=== PATIENT | male | born 2000 | race Two or more races ===

== ENCOUNTER 2021-12-23 12:13 | Emergency (ER) | payer MEDICAID, SELFPAY ==
[2021-12-23 13:06] VITALS: BP 142/89; PULSE 79; RESP 16; TEMP 37; O2SAT 98; BMI 41.5
--- NOTE | 2021-12-23 15:26 | US_ITS ---
WS: [id number] SCROTAL ULTRASOUND EXAMINATION CLINICAL INFORMATION: injury; hematuria COMPARISON: None. FINDINGS: TESTES Normal in size and echotexture, without focal lesion. Color Doppler: Normal color Doppler flow pattern. Right testes size: 4.8 cm x 3.0 cm x 2.5 cm. Left testes size: 4.3 cm x 2.9 cm x 2.4 cm. EPIDIDYMIDES Normal in size and echotexture, without focal lesion. Color Doppler: Normal color Doppler flow pattern. Right epididymis size: 0.9 cm x cm x cm. Left epididymitis size: 0.6 cm x cm x cm. HYDROCELE None. VARICOCELE None. OTHER FINDINGS None. US/US scrotum [id number] IMPRESSION: Normal scrotal ultrasound
--- NOTE | 2021-12-23 15:27 | W.ED.MALEGU ---
Documented by User: CHELO Quezada 12/24/21 07:20 HPI - Male Genitourinary General: Chief complaint: Urogenital-Male Stated complaint: bleeding from penis , cp Time Seen by Provider: 12/23/21 15:18 Source: patient Mode of arrival: ambulatory Limitations: no limitations History of Present Illness: Patient is a 21-year-old male who presents to ED today along with his significant other for complaints of hematuria that he first noticed this morning. Patient states yesterday evening he did sit on his sack by accident. He states he iced his scrotum/testicles last night they did seem to feel better this morning. He is denying redness, swelling, tenderness at the moment. He states he first urinated this morning after he woke up and noticed the urine initially looked clear however quickly turned bright red with small amounts of clots. He is not having any flank pain. No dysuria. No penile discharge otherwise. MD Complaint: genital injury Onset (ago): hour(s) Duration: intermittent Associated symptoms: Reports hematuria; Deny dysuria, nausea, urinary incontinence or vomiting Review of Systems GI: Denies: abdominal pain, nausea, vomiting or diarrhea : Reports: hematuria; Denies: flank pain, difficulty urinating, dysuria, urinary frequency, urinary urgency, urinary hesitancy, urinary dribbling, difficulty starting urination, change in urine stream, nocturia, oliguria, urinary incontinence, genital pain, genital lesions, penile discharge, testicular pain, testicular mass or scrotal swelling Musc: Denies: back pain Skin/Breast: Denies: rash Physical Exam Const: COMMON NORMALS: no acute distress, patient oriented x3, no limitations and alert GENERAL APPEARANCE: cooperative NUTRITIONAL APPEARANCE: obese ORIENTATION/CONSCIOUSNESS: Yes awake, Yes oriented to person, Yes oriented to place and Yes oriented to time : COMMON NORMALS: Yes no CVA tenderness BLADDER/KIDNEY EXAM: Yes no CVA tenderness OTHER: pt deferred Back/Pelvis: COMMON NORMALS: no CVA tenderness Neuro: COMMON NORMALS: patient oriented x3 SENSORIUM/ORIENTATION: Yes alert, Yes oriented to person, Yes oriented to place and Yes oriented to time Course Vital Signs: Vital signs: Vital Signs Temperature 98.6 F 12/23/21 13:06 Pulse Rate 99 12/23/21 18:10 Respiratory Rate 18 12/23/21 18:10 Blood Pressure 134/71 12/23/21 18:10 Pulse Oximetry 98 12/23/21 18:10 MDM - Male Lab Data : 12/23/21 15:30 12/23/21 15:30 Radiology Impressions Scrotum Ultrasound 12/23/21 15:26 IMPRESSION: Normal scrotal ultrasound Abdomen/Pelvis CT 12/23/21 17:06 IMPRESSION: No acute abnormality is seen in the abdomen or pelvis. No renal stone is visualized. Laboratory Results WBC 16.1 10^3/uL (4.0-10.0) H 12/23/21 15:30 RBC 5.86 10^6/uL (4.1-5.3) H 12/23/21 15:30 Hgb 16.2 g/dL (11.7-16.6) 12/23/21 15:30 Hct 48.8 % (42.0-52.0) 12/23/21 15:30 MCV 83.3 fl (80-94) 12/23/21 15:30 MCH 27.6 pg (28.0-34.0) L 12/23/21 15:30 MCHC 33.2 g/dL (30.0-36.0) 12/23/21 15:30 RDW 13.0 % (12.1-15.1) 12/23/21 15:30 Plt Count 419 10^3/cmm (130-400) H 12/23/21 15:30 MPV 10.2 fL (7.4-10.4) 12/23/21 15:30 Neut % (Auto) 74.0 % 12/23/21 15:30 Lymph % (Auto) 18.2 % 12/23/21 15:30 Petroleum % (Auto) 5.4 % 12/23/21 15:30 Eos % (Auto) 1.7 % 12/23/21 15:30 Baso % (Auto) 0.4 % 12/23/21 15:30 Neut # (Auto) 11.96 10^3/uL (1.8-7.7) H 12/23/21 15:30 Lymph # (Auto) 2.9 10^3/uL (0.8-4.8) 12/23/21 15:30 Petroleum # (Auto) 0.9 10^3/uL (0.2-0.9) 12/23/21 15:30 Eos # (Auto) 0.3 10^3/uL (0.0-0.8) 12/23/21 15:30 Baso # (Auto) 0.1 10^3/uL (0.0-0.1) 12/23/21 15:30 Nucleated RBC % (auto) 0 % 12/23/21 15: Nucleated RBCs # 0.0 /100WBC 12/23/21 15:30 Sodium 137 mmol/L (136-145) 12/23/21 15:30 Potassium 3.9 mmol/L (3.5-5.1) 12/23/21 15:30 Chloride 101 mmol/L (98-107) 12/23/21 15: Carbon Dioxide 26 mmol/L (22-29) 12/23/21 15:30 Anion Gap 13.9 (5-19) 12/23/21 15:30 BUN 10 mg/dL (6-20) 12/23/21 15:30 Creatinine 0.7 mg/dL (0.7-1.2) 12/23/21 15:30 GFR Calculation 141.0 mL/min (90-130) H 12/23/21 15:30 Glucose 86 mg/dL (65-115) 12/23/21 15:30 Calculated Osmolality 282 mOsm/kg (285-295) L 12/23/21 15:30 Calcium 9.5 mg/dL (8.5-10.5) 12/23/21 15:30 Total Bilirubin 0.5 mg/dL (0.15-1.2) 12/23/21 15:30 AST 23 U/L (0-40) 12/23/21 15:30 ALT 47 U/L (0-41) H 12/23/21 15:30 Alkaline Phosphatase 93 IU/L (40-130) 12/23/21 15:30 Total Protein 7.6 g/dL (6.6-8.7) 12/23/21 15:30 Albumin 4.5 g/dL (3.5-5.2) 12/23/21 15:30 Globulin 3.1 g/dL (1.3-4.6) 12/23/21 15:30 Urine Color Red (Yellow) 12/23/21 15:30 Urine Appearance Bloody (CLEAR) A 12/23/21 15:30 Urine pH 8 (5-7) H 12/23/21 15:30 Ur Specific [place] 1.010 (1.005-1.030) 12/23/21 15:30 Urine Protein 3+ (Negative) H 12/23/21 15:30 Urine Glucose (UA) Norm (Normal) 12/23/21 15:30 Urine Ketones Negative (Negative) 12/23/21 15:30 Urine Blood 3+ (Negative) H 12/23/21 15:30 Urine Nitrate Negative (Negative) 12/23/21 15:30 Urine Bilirubin Neg (Negative) 12/23/21 15:30 Urine Urobilinogen Norm mg/dL (Negative) 12/23/21 15:30 Ur Leukocyte Esterase 1+ (Negative) H 12/23/21 15:30 Urine RBC Too numerous to cnt /hpf (0-2) H 12/23/21 15:30 Urine WBC 10-15 /hpf (0-5) H 12/23/21 15:30 Ur Squamous Epith Cells None /hpf (0-5) 12/23/21 15:30 Amorphous Sediment Not Reportable 12/23/21 15:30 Urine Bacteria 1+ /hpf (NONE) H 12/23/21 15:30 Discharge Plan Discharge Patient Disposition: Home Clinical Impression: Hematuria of unknown etiology Condition: Stable Prescriptions: New cephalexin 500 mg capsule 500 mg PO TID 7 Days Qty: 21 0RF hydrocodone-acetaminophen 5-325 mg tablet 1 tab PO TID PRN (Reason: pain (scale score 7-10)) Qty: 6 0RF Discharge Orders: Discharge ED (Routine); Ordered 12/23/21 Ordered By: Pedro Luis Young Discharge Diet: Usual diet Discharge Activity: Increase activity as tolerated Patient Instructions: Hematuria (ED), Opioid Safety Activity Restrictions/Additional Instructions: Take medications as directed. Drink plenty of water. Case management will contact you regarding appointment to follow-up with urologist. You will need further evaluation with the urologist due to the hematuria. Return to ER for high fever, worsening pain, or new concerns. Sign Out Sign Out Data: Patient Sign Out occurred on 12/23/21 at 16:22. Patient's care was discussed, and care was transferred from to Pedro Luis Young. 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 Ultrasound was unremarkable. White blood cell count is bumped up a little at 16 along with red blood cell count at 5.86. Suspect renal calculi we will add a CT of the abdomen pelvis without contrast for renal evaluation. Vital Signs: Vital signs: Vital Signs Temperature 98.6 F 12/23/21 13:06 Pulse Rate 99 12/23/21 18:10 Respiratory Rate 18 12/23/21 18:10 Blood Pressure 134/71 12/23/21 18:10 Pulse Oximetry 98 12/23/21 18:10 MDM - Male Medical Decision Making 21-year-old male patient comes in today with blood in his urine. On exam patient had no CVA tenderness. Patient reported right testicular pain that has waxed and waned. Patient appears nontoxic. Vital signs are normal except for some elevation in blood pressure. Differential diagnosis includes cystitis, hematuria of unknown etiology, UTI, renal calculi. Ultrasound of the scrotum was negative for abnormality, CBC showed an increase in white blood cell counts of 16, CMP was unremarkable, urinalysis had too numerous to count red blood cells and some mild elevation in white blood cells. CT of the abdomen pelvis showed no renal calculi at this time. Patient may have an infection causing the hematuria we went ahead and treated with Rocephin and with cephalexin to follow. Patient was treated with his pain with ketorolac and morphine x1. We gave patient 1500 mL of saline to flush the kidneys and 1 g of Rocephin in the ER for treatment of probable UTI. Case management was requested set up follow-up appointment with urology due to the large amount of hematuria. Patient reported understanding of care plan need for follow-up or return to the ER for worsening symptoms. Lab Data : 12/23/21 15:30 12/23/21 15:30 Radiology Impressions Scrotum Ultrasound 12/23/21 15:26 IMPRESSION: Normal scrotal ultrasound Abdomen/Pelvis CT 12/23/21 17:06 IMPRESSION: No acute abnormality is seen in the abdomen or pelvis. No renal stone is visualized. Laboratory Results WBC 16.1 10^3/uL (4.0-10.0) H 12/23/21 15:30 RBC 5.86 10^6/uL (4.1-5.3) H 12/23/21 15:30 Hgb 16.2 g/dL (11.7-16.6) 12/23/21 15:30 Hct 48.8 % (42.0-52.0) 12/23/21 15:30 MCV 83.3 fl (80-94) 12/23/21 15:30 MCH 27.6 pg (28.0-34.0) L 12/23/21 15:30 MCHC 33.2 g/dL (30.0-36.0) 12/23/21 15:30 RDW 13.0 % (12.1-15.1) 12/23/21 15: Plt Count 419 10^3/cmm (130-400) H 12/23/21 15:30 MPV 10.2 fL (7.4-10.4) 12/23/21 15:30 Neut % (Auto) 74.0 % 12/23/21 15:30 Lymph % (Auto) 18.2 % 12/23/21 15:30 Petroleum % (Auto) 5.4 % 12/23/21 15:30 Eos % (Auto) 1.7 % 12/23/21 15:30 Baso % (Auto) 0.4 % 12/23/21 15:30 Neut # (Auto) 11.96 10^3/uL (1.8-7.7) H 12/23/21 15:30 Lymph # (Auto) 2.9 10^3/uL (0.8-4.8) 12/23/21 15:30 Petroleum # (Auto) 0.9 10^3/uL (0.2-0.9) 12/23/21 15:30 Eos # (Auto) 0.3 10^3/uL (0.0-0.8) 12/23/21 15:30 Baso # (Auto) 0.1 10^3/uL (0.0-0.1) 12/23/21 15:30 Nucleated RBC % (auto) 0 % 12/23/21 15: Nucleated RBCs # 0.0 /100WBC 12/23/21 15:30 Sodium 137 mmol/L (136-145) 12/23/21 15:30 Potassium 3.9 mmol/L (3.5-5.1) 12/23/21 15:30 Chloride 101 mmol/L (98-107) 12/23/21 15: Carbon Dioxide 26 mmol/L (22-29) 12/23/21 15:30 Anion Gap 13.9 (5-19) 12/23/21 15:30 BUN 10 mg/dL (6-20) 12/23/21 15:30 Creatinine 0.7 mg/dL (0.7-1.2) 12/23/21 15:30 GFR Calculation 141.0 mL/min (90-130) H 12/23/21 15:30 Glucose 86 mg/dL (65-115) 12/23/21 15:30 Calculated Osmolality 282 mOsm/kg (285-295) L 12/23/21 15:30 Calcium 9.5 mg/dL (8.5-10.5) 12/23/21 15:30 Total Bilirubin 0.5 mg/dL (0.15-1.2) 12/23/21 15:30 AST 23 U/L (0-40) 12/23/21 15:30 ALT 47 U/L (0-41) H 12/23/21 15:30 Alkaline Phosphatase 93 IU/L (40-130) 12/23/21 15:30 Total Protein 7.6 g/dL (6.6-8.7) 12/23/21 15:30 Albumin 4.5 g/dL (3.5-5.2) 12/23/21 15:30 Globulin 3.1 g/dL (1.3-4.6) 12/23/21 15:30 Urine Color Red (Yellow) 12/23/21 15:30 Urine Appearance Bloody (CLEAR) A 12/23/21 15:30 Urine pH 8 (5-7) H 12/23/21 15:30 Ur Specific [place] 1.010 (1.005-1.030) 12/23/21 15:30 Urine Protein 3+ (Negative) H 12/23/21 15:30 Urine Glucose (UA) Norm (Normal) 12/23/21 15:30 Urine Ketones Negative (Negative) 12/23/21 15:30 Urine Blood 3+ (Negative) H 12/23/21 15:30 Urine Nitrate Negative (Negative) 12/23/21 15:30 Urine Bilirubin Neg (Negative) 12/23/21 15:30 Urine Urobilinogen Norm mg/dL (Negative) 12/23/21 15:30 Ur Leukocyte Esterase 1+ (Negative) H 12/23/21 15:30 Urine RBC Too numerous to cnt /hpf (0-2) H 12/23/21 15:30 Urine WBC 10-15 /hpf (0-5) H 12/23/21 15:30 Ur Squamous Epith Cells None /hpf (0-5) 12/23/21 15:30 Amorphous Sediment Not Reportable 12/23/21 15:30 Urine Bacteria 1+ /hpf (NONE) H 12/23/21 15:30 Discharge Plan Discharge Patient Disposition: Home Clinical Impression: Hematuria of unknown etiology Condition: Stable Prescriptions: New cephalexin 500 mg capsule 500 mg PO TID 7 Days Qty: 21 0RF hydrocodone-acetaminophen 5-325 mg tablet 1 tab PO TID PRN (Reason: pain (scale score 7-10)) Qty: 6 0RF Discharge Orders: Discharge ED (Routine); Ordered 12/23/21 Ordered By: Pedro Luis Young Discharge Diet: Usual diet Discharge Activity: Increase activity as tolerated Patient Instructions: Hematuria (ED), Opioid Safety Activity Restrictions/Additional Instructions: Take medications as directed. Drink plenty of water. Case management will contact you regarding appointment to follow-up with urologist. You will need further evaluation with the urologist due to the hematuria. Return to ER for high fever, worsening pain, or new concerns. Sign Out Sign Out Data: Patient Sign Out occurred on 12/23/21 at 16:22. Patient's care was discussed, and care was transferred from to Pedro Luis Young. Coding Level of Care Code ED Deep Submergence Vehicle Crewmember for Chg Fwd Exam Expanded Problem Focused
[2021-12-23 15:50] LABS: Basophils # 0.1 10^3/uL (0.0-0.1); Basophils % 0.4 %; Eosinophils # 0.3 10^3/uL (0.0-0.8); Eosinophils % 1.7 %; Hematocrit 48.8 % (42.0-52.0); Hemoglobin 16.2 g/dL (11.7-16.6); Lymphocytes # 2.9 10^3/uL (0.8-4.8); Lymphocytes % 18.2 %; Mean Corpuscular HGB Conc 33.2 g/dL (30.0-36.0); Mean Corpuscular Hemoglobin 27.6 pg (28.0-34.0); Mean Corpuscular Volume 83.3 fl (80-94); Mean Platelet Volume 10.2 fL (7.4-10.4); Monocytes # 0.9 10^3/uL (0.2-0.9); Monocytes % 5.4 %; Neutrophils # 11.96 10^3/uL (1.8-7.7); Nucleated Red Blood Cells % 0 %; Platelet Count 419 10^3/cmm (130-400); Red Blood Count 5.86 10^6/uL (4.1-5.3); White Blood Count 16.1 10^3/uL (4.0-10.0)
[2021-12-23 16:28] LABS: Alanine Aminotransferase 47 U/L (0-41); Albumin Level 4.5 g/dL (3.5-5.2); Alkaline Phosphatase 93 IU/L (40-130); Anion Gap 13.9 (5-19); Aspartate Amino Transferase 23 U/L (0-40); Blood Urea Nitrogen 10 mg/dL (6-20); Calcium 9.5 mg/dL (8.5-10.5); Carbon Dioxide 26 mmol/L (22-29); Chloride 101 mmol/L (98-107); Globulin 3.1 g/dL (1.3-4.6); Glucose 86 mg/dL (65-115); Osmolality Calculated 282 mOsm/kg (285-295); Potassium 3.9 mmol/L (3.5-5.1); Sodium 137 mmol/L (136-145); Total Bilirubin 0.5 mg/dL (0.15-1.2); Total Protein 7.6 g/dL (6.6-8.7)
[2021-12-23 17:01] LABS: Urine Appearance Bloody (CLEAR); Urine Color Red (Yellow); pH Urine 8 (5-7)
[2021-12-23 17:02] LABS: Add Urine Microscopic? YES; Bilirubin Urine Neg (Negative); Blood Urine 3+ (Negative); Glucose Urine UA Norm (Normal); Ketones Urine Negative (Negative); Leukocyte Esterase Urine 1+ (Negative); Nitrate Urine Negative (Negative); Protein Urine 3+ (Negative); Urobilinogen Urine Norm (Negative)
[2021-12-23 17:03] LABS: Add Urine Culture? Yes; Bacteria Urine 1+ /hpf; RBC Urine TOO NUMEROUS TO CNT /hpf (0-2)
--- NOTE | 2021-12-23 17:06 | CTR_ITS ---
PROCEDURE INFORMATION: Exam: CT Abdomen And Pelvis Without Contrast Exam date and time: 12/23/2021 6:18 PM Age: 21 years old Clinical indication: Pain; Other: Scrotal, penile; Additional info: Hematuria TECHNIQUE: Imaging protocol: Computed tomography of the abdomen and pelvis without contrast. Radiation optimization: All CT scans at this facility use at least one of these dose optimization techniques: automated exposure control; mA and/or kV adjustment per patient size (includes targeted exams where dose is matched to clinical indication); or iterative reconstruction. COMPARISON: US scrotum [id number] 12/23/2021 4:00 PM RADIATION DOSE METRICS: Total DLP (mGy-cm): 1489.43 FINDINGS: Liver: Normal. No mass. Gallbladder and bile ducts: Normal. No calcified stones. No ductal dilation. Pancreas: Normal. No ductal dilation. Spleen: Normal. No splenomegaly. Adrenal glands: Normal. No mass. Kidneys and ureters: Normal. No renal stone or hydronephrosis. Stomach and bowel: Unremarkable. No obstruction. No mucosal thickening. Appendix: No evidence of appendicitis. Intraperitoneal space: Unremarkable. No free air. No significant fluid collection. Vasculature: Unremarkable. No abdominal aortic aneurysm. Lymph nodes: Unremarkable. No enlarged lymph nodes. Urinary bladder: Unremarkable as visualized. Reproductive: Unremarkable as visualized. Bones/joints: Unremarkable. No acute fracture. Soft tissues: Unremarkable. CT/CT kidney stone [id number] IMPRESSION: No acute abnormality is seen in the abdomen or pelvis. No renal stone is visualized.
[2021-12-23] MEDS: sodium chloride 0.9% 500 ML 999 ML IV (17:28)
[2021-12-23] MEDS: ondansetron 2 mg/ML SDV 2 mL 4 MG IVP (17:28)
[2021-12-23] MEDS: ketorolac 30 mg/mL INJ 15 MG IVP (17:28)
[2021-12-23 17:29] VITALS: RESP 14; O2SAT 98
[2021-12-23] MEDS: morphine 4 mg/mL SDV 1 mL IVP (17:29)
[2021-12-23 18:10] VITALS: BP 134/71; PULSE 99; RESP 18; O2SAT 98
[2021-12-23] MEDS: cefTRIAXone 1,000 MG in sodium chloride 0.9% (plus) 50 ML 100 MG IV (19:22)
[2021-12-23] MEDS: sodium chloride 0.9% 1,000 ML 999 ML IV (19:22)
--- NOTE | 2021-12-24 07:18 | DCPLANNER ---
Addendum entered by Viry Ibrahim 01/09/22 12:29: Patient had a follow up appointment scheduled and it was cancelled. Original Note: dairy frozen manager had message to schedule a follow up appointment for patient with urology. dairy frozen manager sent patients information to the front office staff at urology. Patients information will be printed and reviewed. Clinic will call patient with appointment information.
== END 2021-12-23 20:07 | disposition home or self-care (01) ==
PROVIDERS: Physician Assistant; Emergency Provider Nurse Practitioner Family
DX: R31.9 Hematuria, unspecified (principal)
CPT/HCPCS: 74176; 76870; 80053; 81001; 85025; 87077; 87086; 87186; 96365; 96375; 99285; J0696; J1885; J2270; J2405; J7030; J7040

== ENCOUNTER 2022-07-26 10:02 | Emergency (ER) | payer MEDICAID, SELFPAY ==
[2022-07-26 11:00] VITALS: BP 161/104; PULSE 77; TEMP 36.7; O2SAT 99; BMI 35.4
--- NOTE | 2022-07-26 11:59 | W.ED.NAVMDI ---
HPI - Nausea/Vomiting/Diarrhea General: Chief complaint: Nausea/Vomiting/Diarrhea Stated complaint: N/V, Hot flashes, no fever Time Seen by Provider: 07/26/22 11:45 History of Present Illness: 21-year-old male reports that he has been having nausea vomiting diarrhea and stomach cramping since he did a TikTok challenge . He reports that he deep-fried a combination of foods inside of a crispy crust. He reports one of the foods that was inside of it was mayonnaise. He says he ate a whole lot of it. He read that deep frying this mayonnaise can cause it to go bad. He says he also ate such a large volume that it could have just been overload. He has not had any bloody stools, fevers, cough, shortness of breath. He has no chronic abdominal problems. He does report that he has diarrhea medicine and nausea medicine at home. He has not traveled anywhere. No sick contacts. The abdominal pain is crampy and it comes and goes Associated nausea: Yes Associated symtoms: Reports nausea; Denies altered mental status, change in vision, chest pain, dysuria, headache(s) or syncope Review of Systems General: Reports: 10 or more systems reviewed and unremarkable except in HPI and below Const: Denies: fever(s), chills or body aches Eyes: Denies: change in vision ENMT: Denies: throat pain Card: Denies: chest pain, edema or syncope Resp: Denies: dyspnea or productive cough GI: Reports: abdominal pain, nausea, vomiting, diarrhea and GI cramping; Denies: hematemesis or coffee ground emesis : Denies: flank pain, dysuria or urinary frequency Musc: Denies: neck pain, back pain, extremity pain or extremity swelling Skin/Breast: Denies: rash or erythema Neuro: Denies: headache(s), numbness in extremities, weakness in extremities, lack of coordination or difficulty walking Physical Exam Const: COMMON NORMALS: no limitations, alert and well nourished EXAM LIMITATIONS: no altered mental status HENMT: COMMON NORMALS: normocephalic, atraumatic and external ears normal HEAD & SCALP: normocephalic and atraumatic EXTERNAL EAR: Yes external ears normal MOUTH: no muffled voice Eye: COMMON NORMALS: EOMs intact bilaterally, conjunctivae normal and no scleral icterus CONJUNCTIVA: Yes conjunctivae normal Neck/C-Spine: COMMON NORMALS: no JVD GENERAL: Yes normal visual inspection and Yes trachea midline Resp: COMMON NORMALS: normal respiratory effort, No use of accessory muscles and clear to auscultation bilaterally AUSCULTATION: clear to auscultation bilaterally Cardio: COMMON NORMALS: no JVD, regular rate and regular rhythm RATE: regular rate RHYTHM: regular rhythm GI: COMMON NORMALS: Soft to palpation and non-tender AUSCULTATION: Yes Hyperactive bowel sounds present and No High-pitched bowel sounds present PALPATION: Yes Soft to palpation, No Tenderness to palpation present (GI), No Guarding due to palpation present (GI) and No Rigid due to palpation Extremity: COMMON NORMALS: normal to inspection Neuro: COMMON NORMALS: moves all extremities, no focal motor deficits and no sensory deficits noted SENSORIUM/ORIENTATION: Yes alert SPEECH: speech normal Psych: COMMON NORMALS: mental status grossly normal, Normal thought process present, cooperative, normal affect and speech normal SPEECH: Yes normal speech THOUGHT PROCESS: Normal thought process present Skin: COMMON NORMALS: no rashes or lesions noted, turgor normal and no jaundice GENERAL SKIN EXAM: no rashes or lesions noted and turgor normal Course Vital Signs: Vital signs: Vital Signs Temperature 98.1 F 07/26/22 11:00 Pulse Rate 82 07/26/22 12:17 Respiratory Rate 18 07/26/22 12:17 Blood Pressure 165/100 07/26/22 12:17 Pulse Oximetry 97 07/26/22 12:17 Oxygen Delivery Me thod 07/26/22 11:00 MDM - Nausea/Vomiting/Diarrhea Medical Decision Making Patient presents with nausea vomiting diarrhea and intermittent stomach cramping. His abdominal exam is benign with the exception of hyperactive bowel sounds. We discussed potential etiologies including both infectious, inflammatory and functional gastroenteritis simply due to the foods that he consumed. The patient was offered to have IV, labs, medications but states that if it is just something that will likely pass within a day or so, he would rather just go home and take his diarrhea medicine and nausea medicine that he has available there. I do think this is reasonable. His vitals are normal with the exception of elevated blood pressure Discharge Plan Discharge Patient Disposition: Home Clinical Impression: Gastroenteritis Condition: Stable Prescriptions: No Action hydrocodone-acetaminophen 5-325 mg tablet 1 tab PO TID PRN (Reason: pain (scale score 7-10)) Qty: 6 0RF Discharge Orders: Discharge ED (Routine); Ordered 07/26/22 Ordered By: Jm Ortiz Referrals: Sondra Ibrahim [Primary Care Provider] - Discharge Diet: Advance as tolerated Discharge Activity: Resume usual activity Patient Instructions: Gastroenteritis (ED), Abdominal Pain (ED) Activity Restrictions/Additional Instructions: Slowly advance diet. Return to ER for focal abdominal pain, fever, bloody stools, dehydration, or worsening symptoms. 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
--- NOTE | 2022-07-26 12:07 | PC.NURSE ---
pt reports vomiting and diarrhea after attempting a [employer] challenge where you irwin a cheeseburger with corunna. pt reports symptoms began same day. reports low grade fevers. denies other symptoms. pt reports he decided he can treat his symptoms at home and is ready to be discharged. pt speech clear, lung sounds clear bilat, bowel sounds present x4.
[2022-07-26 12:17] VITALS: BP 165/100; PULSE 82; RESP 18; O2SAT 97
== END 2022-07-26 12:19 | disposition home or self-care (01) ==
PROVIDERS: Emergency Provider Emergency Medicine; PCP Nurse Practitioner Family
DX: K52.9 Noninfective gastroenteritis and colitis, unspecified (principal)
CPT/HCPCS: 99282

== ENCOUNTER 2023-11-16 21:36 | Emergency (ER) | payer SELFPAY ==
[2023-11-16 21:46] VITALS: BP 169/83; PULSE 76; RESP 16; TEMP 37.1; O2SAT 98
--- NOTE | 2023-11-16 23:02 | XRR_ITS ---
PROCEDURE INFORMATION: Exam: XR Right Hip Exam date and time: 11/16/2023 11:11 PM Age: 22 years old Clinical indication: Injury or trauma; Fall; Other: Pain; Additional info: Fall, pain, non weightbearing TECHNIQUE: Imaging protocol: Radiologic exam of the right hip. Views: 1 view hip with pelvis when performed. COMPARISON: CT kidney stone [id number] 12/23/2021 6:18 PM FINDINGS: Bones/joints: Unremarkable. No acute fracture. Soft tissues: Unremarkable. XR/XR hip RT 2-3V wo/w pel* [id number] IMPRESSION: No acute findings.
--- NOTE | 2023-11-16 23:02 | XRR_ITS ---
PROCEDURE INFORMATION: Exam: XR Right Knee Exam date and time: 11/16/2023 11:18 PM Age: 22 years old Clinical indication: Injury or trauma; Fall; Other: Pain; Additional info: Fall, pain TECHNIQUE: Imaging protocol: Radiologic exam of the right knee. Views: 3 views. COMPARISON: No relevant prior studies available. FINDINGS: Bones/joints: Normal. Soft tissues: Normal. XR/XR knee RT 3V* [id number] IMPRESSION: No acute findings.
--- NOTE | 2023-11-16 23:02 | XRR_ITS ---
PROCEDURE INFORMATION: Exam: XR Right Tibia and Fibula Exam date and time: 11/16/2023 11:21 PM Age: 22 years old Clinical indication: Injury or trauma; Fall; Other: Pain; Additional info: Fall, mid anne pain TECHNIQUE: Imaging protocol: Radiologic exam of the right tibia and fibula. Views: 2 views. COMPARISON: CR XR knee RT 3V* [id number] 11/16/2023 11:18 PM FINDINGS: Bones/joints: Normal. Soft tissues: Normal. XR/XR tibia fibula RT 2V [id number] IMPRESSION: No acute findings.
--- NOTE | 2023-11-16 23:02 | XRR_ITS ---
PROCEDURE INFORMATION: Exam: XR Right Ankle Exam date and time: 11/16/2023 11:23 PM Age: 22 years old Clinical indication: Injury or trauma; Fall; Other: Pain; Additional info: Fall, swelling, pain TECHNIQUE: Imaging protocol: Radiologic exam of the right ankle. Views: 3 or more views. COMPARISON: CR (LOW EXM, ) 11/16/2023 11:21 PM FINDINGS: Bones/joints: Os trigonum, a normal variant. Soft tissues: Normal. XR/XR ankle RT min 3V* [id number] IMPRESSION: No acute findings. Consider further evaluation with a CT scan if concern fracture remains.
--- NOTE | 2023-11-16 23:02 | XRR_ITS ---
PROCEDURE INFORMATION: Exam: XR Right Foot Exam date and time: 11/16/2023 11:23 PM Age: 22 years old Clinical indication: Injury or trauma; Fall; Other: Pain; Additional info: Fall, swelling, pain TECHNIQUE: Imaging protocol: Radiologic exam of the right foot. Views: 3 or more views. COMPARISON: CR XR ankle RT min 3V* [id number] 11/16/2023 11:23 PM FINDINGS: Bones/joints: Normal. Soft tissues: Normal. XR/XR foot RT min 3V* [id number] IMPRESSION: No acute findings. Consider further evaluation with a CT scan if concern for fracture remains.
[2023-11-16] MEDS: HYDROcodone-acetaminophen 7.5-325 mg Tablet 1 TAB PO (23:12)
--- NOTE | 2023-11-16 23:15 | W.ED.EXTPRO ---
HPI - Extremity Problem General: Chief complaint: Extremity Injury, Lower Stated complaint: fall, right leg and foot swollen Time Seen by Provider: 11/16/23 22:31 Source: patient Mode of arrival: wheelchair Limitations: no limitations History of Present Illness: Patient presents emergency department today accompanied by significant other for evaluation treatment of right lower extremity pain after a fall. Patient reports that he was coming down some hardwood steps when his shoe caught, causing him to fall down. Patient states he went down about 7 or 8 steps. He reports impacting the back of his head on the floor but did not knock himself out. Since falling, he has had swelling of his right foot, right ankle and pain of the foot, ankle, mid anne, right knee with radiation up towards his hip. He has been nonweightbearing. He has not vomited but does have some mild headache. No dizziness. No history of any surgery to the right lower extremity in the past. Review of Systems General: Reports: 10 or more systems reviewed and unremarkable except in HPI and below Physical Exam Const: COMMON NORMALS: no acute distress, patient oriented x3 and alert HENMT: COMMON NORMALS: normocephalic, atraumatic and hearing grossly normal bilaterally HEAD & SCALP: normocephalic and atraumatic OTHER: No signs of any hematomas, abrasions, or contusions in the hair of the posterior scalp. Eye: COMMON NORMALS: Equal, round and reactive pupils present, EOMs intact bilaterally and conjunctivae normal CONJUNCTIVA: Yes conjunctivae normal PUPIL: Yes Equal, round and reactive pupils present Neck/C-Spine: COMMON NORMALS: full ROM and no JVD Lymph: LYMPHATIC: no lymphadenopathy noted Resp: COMMON NORMALS: normal respiratory effort, No retractions and No use of accessory muscles Cardio: COMMON NORMALS: no JVD and regular rate RATE: regular rate Extremity: NARRATIVE EXTREMITY EXAM: Patient is nonweightbearing to the right lower extremity. He does have obvious swelling of the dorsum of his right foot as well as the right lateral malleolus. Patient however almost jumps out of the bed on palpation of his mid tibia. He is also expressing pain with palpation in the right popliteal region. There was a moment where I thought there was some laxity appreciated on medial deviation of the patella on the right knee as well. Nontender to the lateral right hip. Patient does have a little bit of flexion and extension capabilities proven on examination of the hip. Neuro: COMMON NORMALS: patient oriented x3 SENSORIUM/ORIENTATION: Yes alert Psych: COMMON NORMALS: mental status grossly normal, Normal thought process present, cooperative and normal affect THOUGHT PROCESS: Normal thought process present Skin: COMMON NORMALS: no rashes or lesions noted and turgor normal GENERAL SKIN EXAM: no rashes or lesions noted and turgor normal Course Vital Signs: Vital signs: Vital Signs Temperature 98.8 F 11/16/23 21:46 Pulse Rate 60 11/17/23 01:04 Respiratory Rate 15 11/17/23 01:04 Blood Pressure 169/83 11/16/23 21:46 Pulse Oximetry 98 11/17/23 01:04 Oxygen Delivery Me thod Room Air 11/16/23 23:51 MDM - Extremity (Nontraumatic) Medical Decision Making Patient presents emergency department today for evaluation and treatment of right lower extremity injury after a fall on the stairs. Patient did have findings of foot and ankle swelling but, was profusely tender at the tibia and around the knee. While he was neurovascularly intact, we did still obtain x-rays to look for any signs of acute bony abnormality. X-rays are all negative for any signs of acute bony abnormality including x-rays of the hip, knee, tib-fib, ankle, and foot. Patient was treated acutely for pain here in the emergency department. Patient will be given ankle stabilization and crutches to remain nonweightbearing. Prescriptions for pickup at the pharmacy in the morning to be continued through the the next several days was also given. Recommendations for elevation, application of ice to the joints for 15 to 20 minutes, every couple of hours also recommended. Patient is to have follow-up with a primary care doctor in approximately 1 week for reevaluation. That way, patient is still having issues with weightbearing or range of motion he can be reevaluated and discussed repeat films at that time. Patient family verbalized understanding and agreement to treatment plan. Differential Diagnosis Likely lower extremity edema; Unlikely herpes zoster, gout, cellulitis, superficial thrombophlebitis or deep vein thrombosis of lower extremity Lab Data Radiology Impressions Ankle X-Ray 11/16/23 23:02 IMPRESSION: No acute findings. Consider further evaluation with a CT scan if concern fracture remains. Foot X-Ray 11/16/23 23:02 IMPRESSION: No acute findings. Consider further evaluation with a CT scan if concern for fracture remains. Hip/Pelvis X-Ray 11/16/23 23:02 IMPRESSION: No acute findings. Knee X-Ray 11/16/23 23:02 IMPRESSION: No acute findings. Tibia/Fibula X-Ray 11/16/23 23:02 IMPRESSION: No acute findings. All radiology interpretation(s) finalized by discharge Discharge Plan Discharge Patient Disposition: Home Clinical Impression: Ankle sprain and strain, Sprain of foot, right, Right knee sprain, Fall from stairs Condition: Stable Prescriptions: New naproxen 500 mg tablet,delayed release (DR/EC) 500 mg PO BID Qty: 20 0RF tizanidine 4 mg capsule 4 mg PO Q8H PRN (Reason: muscle spasticity) Qty: 20 0RF No Action hydrocodone-acetaminophen 5-325 mg tablet 1 tab PO TID PRN (Reason: pain (scale score 7-10)) Qty: 6 0RF Discharge Orders: Discharge ED (Routine); Ordered 11/17/23 Ordered By: Bernie Krueger Referrals: Sondra Ibrahim [Primary Care Provider] - Discharge Diet: Usual diet Discharge Activity: Limit activity as instructed Patient Instructions: Ankle Sprain (ED), Knee Sprain (ED), Foot Sprain (ED) Activity Restrictions/Additional Instructions: X-rays today show no signs of any acute fractures however, it is obvious on your examination with the swelling of the foot and the ankle that you at a minimum have overstretched or injured your connective tissues. This can still take a week or so to heal up so, I would like you to use crutches during this time. Were also providing you some immobilization for your ankle and foot to help with generalized discomfort. Is much as possible for the next several days need to keep your leg up and elevated. Apply ice to the joints for 15 to 20 minutes every couple of hours. I am providing medication which will help with inflammation and pain as well. I have requested a follow-up appointment be made with the primary care physician to our case management workers so that you can have a reevaluation of these injuries. If after 1 week of conservative management you are not noticing ability to bear weight or perform range of motion, it would be worth having a second evaluation and to discuss getting repeat films at that time. Coding Level of Care Code ED [employer] [facility] [employer]
[2023-11-16 23:51] VITALS: PULSE 55; RESP 16; O2SAT 96
[2023-11-17] MEDS: ketorolac 30 mg/mL INJ IM (00:37)
[2023-11-17] MEDS: orphenadrine 30 mg/mL Inj 2 mL 60 MG IM (00:37)
[2023-11-17 01:04] VITALS: PULSE 60; RESP 15; O2SAT 98
[2023-11-17 02:02] VITALS: PULSE 84; RESP 16; O2SAT 98
--- NOTE | 2023-11-19 08:13 | DCPLANNER ---
message sent to [facility] for er f/u
== END 2023-11-17 02:03 | disposition home or self-care (01) ==
PROVIDERS: Emergency Provider Physician Assistant; PCP Nurse Practitioner Family
DX: S93.401A Sprain of unspecified ligament of right ankle, initial encounter (principal); S96.911A Strain of unspecified muscle and tendon at ankle and foot level, right foot, initial encounter; S93.601A Unspecified sprain of right foot, initial encounter; S83.91XA Sprain of unspecified site of right knee, initial encounter; W10.8XXA Fall (on) (from) other stairs and steps, initial encounter
CPT/HCPCS: 73502; 73562; 73590; 73610; 73630; 96372; 99284; E0114; J1885; J2360